=== PATIENT | male | born 1955 | race Caucasian/White ===

== ENCOUNTER → 2016-03-20 | Outpatient (CLI) | payer BC ==
[2016-03-20 19:37] LABS: ALBUMIN 3.7 GM/DL (3.2-5.2); ALBUMIN/GLOBULIN RATIO 1.12 (1.00-1.93); ALKALINE PHOSPHATASE 52 U/L (45-117); ALT/SGPT 41 U/L (12-78); ANION GAP 10 MEQ/L (8-16); AST/SGOT 24 U/L (15-37); BILIRUBIN,TOTAL 0.6 MG/DL (0.2-1.0); BLOOD UREA NITROGEN 14 MG/DL (7-18); CALCIUM LEVEL 8.6 MG/DL (8.8-10.2); CARBON DIOXIDE LEVEL 31 MEQ/L (21-32); CHLORIDE LEVEL 99 MEQ/L (98-107); CHOLESTEROL LEVEL 143 MG/DL (<200); CREATININE FOR GFR 0.76 MG/DL (0.70-1.30); GLOMERULAR FILTRATION RATE > 60.0 (>49); GLUCOSE, FASTING 119 MG/DL (80-110); POTASSIUM SERUM 4.2 MEQ/L (3.5-5.1); SODIUM LEVEL 140 MEQ/L (136-145); TRIGLYCERIDES LEVEL 144 MG/DL (<150)
[2016-03-20 19:38] LABS: BASO % 0.5 % (0.0-1.0); EOS # 0.3 K/mm3 (0.0-0.50); EOS % 3.7 % (0.0-3.0); LARGE UNSTAINED CELL # 0.2 K/mm3 (0.0-0.4); LARGE UNSTAINED CELL % 2.9 % (0.0-4.0); LYMPH # 1.6 K/mm3 (1.5-4.5); LYMPH % 19.6 % (24.0-44.0); MEAN CORPUSCULAR HEMOGLOBIN 30.9 pg (27.0-33.0); MEAN CORPUSCULAR HGB CONC 32.8 g/dl (32.0-36.5); MONO # 0.5 K/mm3 (0.0-0.8); MONO % 6.8 % (0.0-5.0); NEUTROPHILS # 4.9 K/mm3 (1.8-7.7); NEUTROPHILS % 66.6 % (36.0-66.0); PLATELET COUNT, AUTOMATED 194 k/mm3 (150-450); WHITE BLOOD COUNT 7.4 K/mm3 (4.0-10.0)
== END ==
LOC: M WUC 08:04
PROVIDERS: ATTEND Family Medicine
DX: E11.65 Type 2 diabetes mellitus with hyperglycemia (principal)

== ENCOUNTER → 2016-11-13 | Outpatient (CLI) | payer BC ==
[2016-11-13 12:10] LABS: BASO % 0.1 % (0.0-1.0); EOS # 0.2 K/mm3 (0.0-0.50); EOS % 3.7 % (0.0-3.0); LARGE UNSTAINED CELL # 0.1 K/mm3 (0.0-0.4); LARGE UNSTAINED CELL % 2.3 % (0.0-4.0); LYMPH # 1.1 K/mm3 (1.5-4.5); MEAN CORPUSCULAR HEMOGLOBIN 30.1 pg (27.0-33.0); MONO # 0.3 K/mm3 (0.0-0.8); MONO % 5.1 % (0.0-5.0); NEUTROPHILS # 4.3 K/mm3 (1.8-7.7); NEUTROPHILS % 70.7 % (36.0-66.0); PLATELET COUNT, AUTOMATED 194 k/mm3 (150-450); RED CELL DISTRIBUTION WIDTH 12.1 % (11.5-14.5); WHITE BLOOD COUNT 6.1 K/mm3 (4.0-10.0)
[2016-11-13 12:16] LABS: ALBUMIN 3.6 GM/DL (3.2-5.2); ALBUMIN/GLOBULIN RATIO 1.09 (1.00-1.93); ALKALINE PHOSPHATASE 52 U/L (45-117); ALT/SGPT 49 U/L (12-78); ANION GAP 8 MEQ/L (8-16); AST/SGOT 26 U/L (15-37); BILIRUBIN,TOTAL 0.7 MG/DL (0.2-1.0); BLOOD UREA NITROGEN 13 MG/DL (7-18); CALCIUM LEVEL 8.1 MG/DL (8.8-10.2); CARBON DIOXIDE LEVEL 30 MEQ/L (21-32); CHLORIDE LEVEL 102 MEQ/L (98-107); CHOLESTEROL LEVEL 137 MG/DL (<200); CREATININE FOR GFR 0.67 MG/DL (0.70-1.30); GLOMERULAR FILTRATION RATE > 60.0 (>49); GLUCOSE, FASTING 152 MG/DL (80-110); POTASSIUM SERUM 4.5 MEQ/L (3.5-5.1); SODIUM LEVEL 140 MEQ/L (136-145); TOTAL PROTEIN 6.9 GM/DL (6.4-8.2); TRIGLYCERIDES LEVEL 162 MG/DL (<150)
== END ==
LOC: M WUC 09:46
PROVIDERS: ATTEND Family Medicine
DX: E11.65 Type 2 diabetes mellitus with hyperglycemia (principal)

== ENCOUNTER → 2017-02-21 | Outpatient (CLI) | payer BC ==
[2017-02-21 17:44] LABS: ANION GAP 9 MEQ/L (8-16); BLOOD UREA NITROGEN 11 MG/DL (7-18); CALCIUM LEVEL 9.3 MG/DL (8.8-10.2); CARBON DIOXIDE LEVEL 31 MEQ/L (21-32); CHLORIDE LEVEL 95 MEQ/L (98-107); CREATININE FOR GFR 0.78 MG/DL (0.70-1.30); GLOMERULAR FILTRATION RATE > 60.0 (>49); GLUCOSE, FASTING 206 MG/DL (80-110); POTASSIUM SERUM 4.1 MEQ/L (3.5-5.1); SODIUM LEVEL 135 MEQ/L (136-145)
== END ==
LOC: M WUC 14:25
PROVIDERS: ATTEND Physician Assistant Medical
DX: E11.65 Type 2 diabetes mellitus with hyperglycemia (principal)

== ENCOUNTER → 2017-02-21 | Outpatient (CLI) | payer BC ==
[2017-02-21 14:05] LABS: BASO % 0.2 % (0.0-1.0); EOS # 0.2 10^3/uL (0.0-0.50); EOS % 2.3 % (0.0-3.0); IMMATURE GRANULOCYTE % 0.3 % (0-0); LYMPH # 1.8 10^3/uL (1.5-4.5); LYMPH % 19.9 % (24.0-44.0); MEAN CORPUSCULAR HEMOGLOBIN 30.2 pg (27.0-33.0); MEAN CORPUSCULAR HGB CONC 32.6 g/dl (32.0-36.5); MEAN CORPUSCULAR VOLUME 92.6 fl (80.0-96.0); MONO # 0.7 10^3/uL (0.0-0.8); MONO % 7.5 % (0.0-5.0); NEUTROPHILS # 6.4 10^3/uL (1.8-7.7); NEUTROPHILS % 69.8 % (36.0-66.0); PLATELET COUNT, AUTOMATED 270 10^3/uL (150-450); WHITE BLOOD COUNT 9.2 10^3/uL (4.0-10.0)
[2017-02-21 15:09] LABS: ALBUMIN 3.8 GM/DL (3.2-5.2); ALBUMIN/GLOBULIN RATIO 0.97 (1.00-1.93); ALKALINE PHOSPHATASE 56 U/L (45-117); ALT/SGPT 39 U/L (12-78); ANION GAP 10 MEQ/L (8-16); AST/SGOT 18 U/L (7-37); BILIRUBIN,TOTAL 0.6 MG/DL (0.2-1.0); BLOOD UREA NITROGEN 11 MG/DL (7-18); CALCIUM LEVEL 9.2 MG/DL (8.8-10.2); CARBON DIOXIDE LEVEL 30 MEQ/L (21-32); CHLORIDE LEVEL 95 MEQ/L (98-107); CREATININE FOR GFR 0.84 MG/DL (0.70-1.30); GLOMERULAR FILTRATION RATE > 60.0 (>49); GLUCOSE, FASTING 231 MG/DL (80-110); SODIUM LEVEL 135 MEQ/L (136-145); TOTAL PROTEIN 7.7 GM/DL (6.4-8.2)
--- NOTE | 2017-02-22 01:00 | REP ---
Clinical: Epigastric and abdominal pain. Technique: Upright view of the chest with supine and upright views of the abdomen and pelvis. Findings: Frontal upright view of the chest demonstrates no acute cardiopulmonary process or free air below the diaphragm to suspect pneumoperitoneum. Supine and upright views of the abdomen and pelvis demonstrate nonspecific bowel gas pattern without obstruction or perforation. No organomegaly. Calcifications in the pelvis likely phleboliths and prostatic calcifications. Skeletal structures normal for age. Impression: Nonspecific bowel gas pattern. Signed by Sajan Moran MD 02/21/2017 09:51 P
== END ==
LOC: M WUC 08:36
PROVIDERS: ATTEND Physician Assistant
DX: R10.84 Generalized abdominal pain (principal); R11.10 Vomiting, unspecified

== ENCOUNTER → 2017-02-21 | Outpatient (CLI) | payer BC ==
[~2017-02-21] MED LIST: GASTROGRAFIN SOLUTION 30ML (Q9963) As Ordered ONE; ISOVUE-370 76% 100ML VIAL (Q9967) As Ordered ONE
--- NOTE | 2017-02-21 12:19 | REP ---
CT abdomen and pelvis with IV and oral contrast: History: Generalized abdominal pain. The patient gives a history of prior appendectomy. CT contrast dose: 100 ml of intravenous Isovue 370 is administered. No comparison study. 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 The lung bases are clear. No pleural effusion or upper abdominal ascites. There is diffuse fatty infiltration of the liver noted. No focal liver lesion is seen. No adrenal lesion is observed. The spleen is homogeneous and normal in size. Pancreas is normal. No gallbladder abnormality is observed. Normal caliber aorta is seen. No retroperitoneal mass or adenopathy is seen. The kidneys enhance symmetrically and are morphologically intact. Large and small bowel loops show left colonic diverticulosis without CT evidence of diverticulitis. There is a left inguinal hernia transmitting a loop of unobstructed sigmoid colon along with some abdominal fat into the hernia sac. No pelvic mass or adenopathy is seen. There are dystrophic calcifications in the prostate gland. Urinary bladder is intact. Seminal vesicles are unremarkable. No other abdominal wall defect is seen. Bone window settings show no bony destructive lesion. Degenerative spondylosis changes are seen in the lumbar spine. Impression: 1. Left colonic diverticulosis. 2. Left inguinal hernia transmitting sigmoid colon loop without evidence of obstruction. 3. Dystrophic calcifications in the prostate. 4. Fatty infiltration of the liver diffusely. Signed by Dre Brambila MD 02/21/2017 04:11 P
== END ==
LOC: M RAD 10:19
PROVIDERS: ATTEND Physician Assistant
DX: K57.30 Diverticulosis of large intestine without perforation or abscess without bleeding (principal); K40.90 Unilateral inguinal hernia, without obstruction or gangrene, not specified as recurrent; K76.0 Fatty (change of) liver, not elsewhere classified; N42.89 Other specified disorders of prostate
CPT/HCPCS: 74177; Q9963; Q9967

== ENCOUNTER → 2017-05-28 | Outpatient (CLI) | payer BC ==
[2017-05-28 13:22] LABS: ANION GAP 5 MEQ/L (8-16); BLOOD UREA NITROGEN 14 MG/DL (7-18); CALCIUM LEVEL 8.7 MG/DL (8.8-10.2); CARBON DIOXIDE LEVEL 33 MEQ/L (21-32); CHLORIDE LEVEL 103 MEQ/L (98-107); CREATININE FOR GFR 0.78 MG/DL (0.70-1.30); GLOMERULAR FILTRATION RATE > 60.0 (>49); GLUCOSE, FASTING 145 MG/DL (70-100); POTASSIUM SERUM 4.5 MEQ/L (3.5-5.1); SODIUM LEVEL 141 MEQ/L (136-145)
[2017-05-28 13:34] LABS: ESTIMATED AVERAGE GLUCOSE 148 MG/DL (60-110); HEMOGLOBIN A1c 6.8 %
[2017-05-28 13:44] LABS: MALB URINE SIEMENS 12.2 MG/L; MAU/CREAT RATIO 6.1 MCG/MG (0.0-30.0)
== END ==
LOC: M WUC 08:24
DX: E11.69 Type 2 diabetes mellitus with other specified complication (principal)
CPT/HCPCS: 83036

== ENCOUNTER → 2017-09-23 | Outpatient (CLI) | payer BC | LOC: M RAD 09:18 | DX: K40.90 Unilateral inguinal hernia, without obstruction or gangrene, not specified as recurrent (principal); N50.812 Left testicular pain | CPT/HCPCS: 76870 ==

== ENCOUNTER → 2018-01-07 | Outpatient (CLI) | payer BC ==
[2018-01-07 13:37] LABS: ALBUMIN 3.7 GM/DL (3.2-5.2); ALBUMIN/GLOBULIN RATIO 1.19 (1.00-1.93); ALKALINE PHOSPHATASE 53 U/L (45-117); ALT/SGPT 36 U/L (12-78); ANION GAP 6 MEQ/L (8-16); AST/SGOT 24 U/L (7-37); BILIRUBIN,TOTAL 0.7 MG/DL (0.2-1.0); BLOOD UREA NITROGEN 12 MG/DL (7-18); CALCIUM LEVEL 8.9 MG/DL (8.8-10.2); CARBON DIOXIDE LEVEL 32 MEQ/L (21-32); CHLORIDE LEVEL 102 MEQ/L (98-107); CHOLESTEROL LEVEL 193 MG/DL (<200); CREATININE FOR GFR 0.72 MG/DL (0.70-1.30); GLOMERULAR FILTRATION RATE > 60.0 (>49); GLUCOSE, FASTING 125 MG/DL (70-100); HDL CHOLESTEROL 48 MG/DL (>40); LDL CHOLESTEROL 110 MG/DL (<100); NON-HDL-C 145 MG/DL; POTASSIUM SERUM 4.4 MEQ/L (3.5-5.1); SODIUM LEVEL 140 MEQ/L (136-145); TOTAL PROTEIN 6.8 GM/DL (6.4-8.2); TRIGLYCERIDES LEVEL 177 MG/DL (<150)
[2018-01-07 14:10] LABS: ESTIMATED AVERAGE GLUCOSE 140 MG/DL (60-110); HEMOGLOBIN A1c 6.5 %
[2018-01-07 16:56] LABS: BASO % 0.3 % (0.0-1.0); EOS # 0.2 10^3/uL (0.0-0.50); EOS % 3.4 % (0.0-3.0); HEMATOCRIT 47.2 % (42.0-52.0); HEMOGLOBIN 15.1 g/dl (13.5-17.5); IMMATURE GRANULOCYTE % 0.3 % (0-3.0); LYMPH # 1.4 10^3/uL (1.5-4.5); LYMPH % 20.3 % (24.0-44.0); MEAN CORPUSCULAR HEMOGLOBIN 31.2 pg (27.0-33.0); MEAN CORPUSCULAR VOLUME 97.5 fl (80.0-96.0); MONO # 0.6 10^3/uL (0.0-0.8); MONO % 9.3 % (0.0-5.0); NEUTROPHILS # 4.5 10^3/uL (1.8-7.7); NEUTROPHILS % 66.4 % (36.0-66.0); PLATELET COUNT, AUTOMATED 201 10^3/uL (150-450); RED BLOOD COUNT 4.84 10^6/uL (4.30-6.10); RED CELL DISTRIBUTION WIDTH 12.6 % (11.5-14.5); WHITE BLOOD COUNT 6.8 10^3/uL (4.0-10.0)
== END ==
LOC: M WUC 08:44
DX: E11.69 Type 2 diabetes mellitus with other specified complication (principal)
CPT/HCPCS: 80053

== ENCOUNTER → 2018-07-15 | Outpatient (CLI) | payer BC ==
[2018-07-15 18:41] LABS: BLOOD UREA NITROGEN 13 MG/DL (7-18); CALCIUM LEVEL 8.9 MG/DL (8.8-10.2); CARBON DIOXIDE LEVEL 31 MEQ/L (21-32); CHLORIDE LEVEL 102 MEQ/L (98-107); CREATININE FOR GFR 0.75 MG/DL (0.70-1.30); GLOMERULAR FILTRATION RATE > 60.0 (>49); GLUCOSE, FASTING 121 MG/DL (70-100); POTASSIUM SERUM 4.4 MEQ/L (3.5-5.1); SODIUM LEVEL 139 MEQ/L (136-145)
== END ==
LOC: M WUC 08:03
PROVIDERS: ATTEND Physician Assistant
DX: E11.65 Type 2 diabetes mellitus with hyperglycemia (principal); E11.69 Type 2 diabetes mellitus with other specified complication

== ENCOUNTER → 2019-01-20 | Outpatient (CLI) | payer BC ==
[2019-01-20 13:21] LABS: BASO % 0.3 % (0.0-1.0); EOS # 0.2 10^3/uL (0.0-0.5); EOS % 3.5 % (0.0-3.0); HEMATOCRIT 46.7 % (42.0-52.0); HEMOGLOBIN 14.6 g/dl (13.5-17.5); LYMPH # 1.2 10^3/uL (1.5-5.0); LYMPH % 19.3 % (24.0-44.0); MEAN CORPUSCULAR HEMOGLOBIN 30.6 pg (27.0-33.0); MEAN CORPUSCULAR HGB CONC 31.3 g/dl (32.0-36.5); MEAN CORPUSCULAR VOLUME 97.9 fl (80.0-96.0); MONO # 0.5 10^3/uL (0.0-0.8); NEUTROPHILS # 4.1 10^3/uL (1.5-8.5); NEUTROPHILS % 68.6 % (36.0-66.0); PLATELET COUNT, AUTOMATED 203 10^3/uL (150-450); RED BLOOD COUNT 4.77 10^6/uL (4.30-6.10)
[2019-01-20 13:30] LABS: ALBUMIN 3.6 GM/DL (3.2-5.2); ALT/SGPT 40 U/L (12-78); BILIRUBIN,TOTAL 0.5 MG/DL (0.2-1.0); BLOOD UREA NITROGEN 12 MG/DL (7-18); CALCIUM LEVEL 8.5 MG/DL (8.8-10.2); CARBON DIOXIDE LEVEL 32 MEQ/L (21-32); CHLORIDE LEVEL 100 MEQ/L (98-107); CHOLESTEROL LEVEL 147 MG/DL (<200); CHOLESTEROL RISK RATIO 2.882 (<5); CREATININE FOR GFR 0.77 MG/DL (0.70-1.30); GLOMERULAR FILTRATION RATE > 60.0 (>49); GLUCOSE, FASTING 124 MG/DL (70-100); HDL CHOLESTEROL 51 MG/DL (>40); LDL CHOLESTEROL 70 MG/DL (<100); NON-HDL-C 96 MG/DL; POTASSIUM SERUM 4.3 MEQ/L (3.5-5.1); SODIUM LEVEL 139 MEQ/L (136-145); TOTAL PROTEIN 7.3 GM/DL (6.4-8.2); TRIGLYCERIDES LEVEL 129 MG/DL (<150)
[2019-01-20 13:39] LABS: HEMOGLOBIN A1c 7.1 %
[2019-01-20 13:53] LABS: MALB URINE SIEMENS 7.9 MG/L; MAU/CREAT RATIO 6.9 MCG/MG (0.0-30.0)
== END ==
LOC: M WUC 07:58
PROVIDERS: ATTEND Family Medicine
DX: E11.69 Type 2 diabetes mellitus with other specified complication (principal)

== ENCOUNTER → 2019-07-27 | Outpatient (CLI) | payer BC ==
[2019-07-27 10:43] LABS: HEMOGLOBIN A1c 7.9 %
== END ==
LOC: M WUC 08:12
PROVIDERS: ATTEND Nurse Practitioner Family
DX: E11.69 Type 2 diabetes mellitus with other specified complication (principal)

== ENCOUNTER → 2019-12-04 | Outpatient (CLI) | payer OTHER ==
[2019-12-04 18:59] LABS: HEMOGLOBIN A1c 8.2 %
[2019-12-04 19:02] LABS: ALBUMIN 3.8 GM/DL (3.2-5.2); ALT/SGPT 48 U/L (12-78); BILIRUBIN,TOTAL 0.6 MG/DL (0.2-1.0); BLOOD UREA NITROGEN 18 MG/DL (7-18); CALCIUM LEVEL 9.1 MG/DL (8.8-10.2); CARBON DIOXIDE LEVEL 30 MEQ/L (21-32); CHLORIDE LEVEL 102 MEQ/L (98-107); CHOLESTEROL LEVEL 262 MG/DL (<200); CHOLESTEROL RISK RATIO 5.458 (<5); CREATININE FOR GFR 0.76 MG/DL (0.70-1.30); GLOMERULAR FILTRATION RATE > 60.0 (>49); GLUCOSE, FASTING 121 MG/DL (70-100); HDL CHOLESTEROL 48 MG/DL (>40); LDL CHOLESTEROL 155 MG/DL (<100); NON-HDL-C 214 MG/DL; POTASSIUM SERUM 4.1 MEQ/L (3.5-5.1); SODIUM LEVEL 136 MEQ/L (136-145); TOTAL PROTEIN 7.5 GM/DL (6.4-8.2); TRIGLYCERIDES LEVEL 296 MG/DL (<150)
== END ==
LOC: M WUC 14:06
PROVIDERS: ATTEND Nurse Practitioner Family
DX: E78.2 Mixed hyperlipidemia (principal); E11.9 Type 2 diabetes mellitus without complications

== ENCOUNTER → 2020-03-06 | Outpatient (CLI) | payer OTHER ==
[2020-03-06 11:35] LABS: HEMOGLOBIN A1c 9.6 %
[2020-03-06 11:55] LABS: CHOLESTEROL RISK RATIO 3.911 (<5)
[2020-03-06 12:08] LABS: MALB URINE SIEMENS 31.4 MG/L; MAU/CREAT RATIO 16.4 MCG/MG (0.0-30.0)
== END ==
LOC: M WUC 08:13
PROVIDERS: ATTEND Nurse Practitioner Family
DX: E11.69 Type 2 diabetes mellitus with other specified complication (principal)

== ENCOUNTER → 2020-06-09 | Outpatient (CLI) | payer MEDICARE ==
--- NOTE | 2020-06-09 08:12 | REP ---
INDICATION: AAA SCREENING. COMPARISON: None. None. TECHNIQUE: Multiple sonographic images of the abdominal aorta. Multiple duplex ultrasound images of the abdominal aorta. FINDINGS: Abdominal aortic measurements: Proximal, at diaphragm: 2.6 cm AP x 2.9 cm transverse Renal artery level: Obscured cm AP x obscured cm transverse Mid aorta: 2.0 cm AP x 1.9 cm transverse Distal aorta, pre bifurcation: 1.7 cm AP x 2.3 cm transverse Right common iliac artery: Obscured cm AP x obscured cm transverse Left common iliac artery: 1.2 cm AP x 1.4 cm transverse IMPRESSION: No abdominal aortic aneurysm is identified by ultrasound today, however, the renal artery level of the aorta is obscured, and the right common iliac artery is obscured. <Electronically signed by Shade Barrera > 06/09/20 [id number]
== END ==
LOC: M RAD 07:24
PROVIDERS: ATTEND Nurse Practitioner Family
DX: Z87.891 Personal history of nicotine dependence (principal)

== ENCOUNTER → 2020-08-29 | Outpatient (REF) | payer MEDICARE ==
[2020-08-29 11:04] LABS: HEMOGLOBIN A1c 8.3 %
== END ==
LOC: M WUC 09:48
PROVIDERS: ATTEND Nurse Practitioner Family
DX: E11.69 Type 2 diabetes mellitus with other specified complication (principal)

== ENCOUNTER → 2020-12-04 | Outpatient (CLI) | payer MEDICARE ==
[2020-12-04 11:47] LABS: HEMOGLOBIN A1c 8.2 %
== END ==
LOC: M WUC 09:51
PROVIDERS: ATTEND Nurse Practitioner Family
DX: E11.69 Type 2 diabetes mellitus with other specified complication (principal)

== ENCOUNTER → 2021-03-06 | Outpatient (CLI) | payer MEDICARE ==
[2021-03-06 10:24] LABS: ALBUMIN 3.6 GM/DL (3.2-5.2); ALT/SGPT 43 U/L (12-78); BILIRUBIN,TOTAL 0.5 MG/DL (0.2-1.0); BLOOD UREA NITROGEN 16 MG/DL (7-18); CARBON DIOXIDE LEVEL 29 MEQ/L (21-32); CHLORIDE LEVEL 105 MEQ/L (98-107); CHOLESTEROL LEVEL 205 MG/DL (<200); CHOLESTEROL RISK RATIO 4.555 (<5); CREATININE FOR GFR 0.77 MG/DL (0.70-1.30); GLOMERULAR FILTRATION RATE > 60.0 (>49); GLUCOSE, FASTING 221 MG/DL (70-100); HDL CHOLESTEROL 45 MG/DL (>40); LDL CHOLESTEROL 114 MG/DL (<100); NON-HDL-C 160 MG/DL; POTASSIUM SERUM 4.8 MEQ/L (3.5-5.1); SODIUM LEVEL 140 MEQ/L (136-145); TOTAL PROTEIN 7.2 GM/DL (6.4-8.2); TRIGLYCERIDES LEVEL 230 MG/DL (<150)
[2021-03-06 10:29] LABS: HEMOGLOBIN A1c 8.6 %
[2021-03-06 10:48] LABS: MALB URINE SIEMENS 10.9 MG/L; MAU/CREAT RATIO 8.7 MCG/MG (0.0-30.0)
== END ==
LOC: M LAB 08:58
PROVIDERS: ATTEND Nurse Practitioner Family
DX: E11.69 Type 2 diabetes mellitus with other specified complication (principal); E78.2 Mixed hyperlipidemia

== ENCOUNTER → 2021-06-05 | Outpatient (REF) | payer MEDICARE ==
[2021-06-05 11:27] LABS: HEMOGLOBIN A1c 7.4 %
== END ==
LOC: M WUC 10:02
PROVIDERS: ATTEND Nurse Practitioner Family
DX: E11.69 Type 2 diabetes mellitus with other specified complication (principal)

== ENCOUNTER → 2021-09-12 | Outpatient (CLI) | payer MEDICARE ==
[2021-09-12 10:00] LABS: BLOOD UREA NITROGEN 13 MG/DL (7-18); CALCIUM LEVEL 9.2 MG/DL (8.8-10.2); CARBON DIOXIDE LEVEL 28 MEQ/L (21-32); CHLORIDE LEVEL 103 MEQ/L (98-107); CREATININE FOR GFR 0.79 MG/DL (0.70-1.30); GLOMERULAR FILTRATION RATE > 60.0 (>49); GLUCOSE, FASTING 189 MG/DL (70-100); POTASSIUM SERUM 4.9 MEQ/L (3.5-5.1); SODIUM LEVEL 137 MEQ/L (136-145)
[2021-09-12 10:01] LABS: HEMOGLOBIN A1c 7.1 %
== END ==
LOC: M PLALAB 08:31 → M LAB 08:31
PROVIDERS: ATTEND Nurse Practitioner Family
DX: E11.69 Type 2 diabetes mellitus with other specified complication (principal)

== ENCOUNTER → 2021-12-15 | Outpatient (CLI) | payer MEDICARE ==
[2021-12-15 11:23] LABS: ALBUMIN 3.6 GM/DL (3.2-5.2); ALT/SGPT 40 U/L (12-78); BILIRUBIN,TOTAL 0.5 MG/DL (0.2-1.0); BLOOD UREA NITROGEN 14 MG/DL (7-18); CARBON DIOXIDE LEVEL 29 MEQ/L (21-32); CHLORIDE LEVEL 101 MEQ/L (98-107); CHOLESTEROL LEVEL 176 MG/DL (<200); CHOLESTEROL RISK RATIO 3.591 (<5); CREATININE FOR GFR 0.92 MG/DL (0.70-1.30); GLOMERULAR FILTRATION RATE > 60.0 (>49); GLUCOSE, FASTING 232 MG/DL (70-100); HDL CHOLESTEROL 49 MG/DL (>40); LDL CHOLESTEROL 75 MG/DL (<100); NON-HDL-C 127 MG/DL; POTASSIUM SERUM 4.2 MEQ/L (3.5-5.1); SODIUM LEVEL 135 MEQ/L (136-145); TRIGLYCERIDES LEVEL 261 MG/DL (<150)
[2021-12-15 11:29] LABS: HEMOGLOBIN A1c 8.1 %
[2021-12-15 12:05] LABS: MALB URINE SIEMENS 12.3 MG/L; MAU/CREAT RATIO 8.7 MCG/MG (0.0-30.0)
== END ==
LOC: M WUC 08:06
PROVIDERS: ATTEND Nurse Practitioner Family
DX: E11.69 Type 2 diabetes mellitus with other specified complication (principal); E78.2 Mixed hyperlipidemia

== ENCOUNTER → 2022-03-25 | Outpatient (CLI) | payer MEDICARE ==
[2022-03-25 10:17] LABS: HEMOGLOBIN A1c 8.2 % (4.0-6.0)
== END ==
LOC: M WUC 08:27
PROVIDERS: ATTEND Nurse Practitioner Family
DX: E11.69 Type 2 diabetes mellitus with other specified complication (principal)

== ENCOUNTER → 2022-04-13 | Outpatient (CLI) | payer MEDICARE ==
[2022-04-13 16:58] LABS: HEMATOCRIT 41.6 % (42.0-52.0); HEMOGLOBIN 13.2 g/dl (13.5-17.5); MEAN CORPUSCULAR HEMOGLOBIN 30.9 pg (27.0-33.0); MEAN CORPUSCULAR HGB CONC 31.7 g/dl (32.0-36.5); MEAN CORPUSCULAR VOLUME 97.4 fl (80.0-96.0); PLATELET COUNT, AUTOMATED 222 10^3/uL (150-450); RED BLOOD COUNT 4.27 10^6/uL (4.30-6.10); WHITE BLOOD COUNT 7.2 10^3/uL (4.0-10.0)
== END ==
LOC: M WUC 13:24
PROVIDERS: ATTEND Internal Medicine Cardiovascular Disease
DX: R06.02 Shortness of breath (principal)

== ENCOUNTER → 2022-04-14 | Outpatient (CLI) | payer MEDICARE | LOC: M RAD 09:02 | PROVIDERS: ATTEND Internal Medicine Cardiovascular Disease | DX: R06.02 Shortness of breath (principal); I51.7 Cardiomegaly; I77.819 Aortic ectasia, unspecified site ==

== ENCOUNTER → 2022-05-10 | Outpatient (CLI) | payer MEDICARE | LOC: M CARPUL 09:50 | PROVIDERS: ATTEND Internal Medicine Cardiovascular Disease | DX: R06.02 Shortness of breath (principal) ==

== ENCOUNTER → 2022-06-18 | Outpatient (CLI) | payer MEDICARE ==
[2022-06-18 13:34] LABS: ALBUMIN 3.5 G/DL (3.2-5.2); ALKALINE PHOSPHATASE 49 U/L (46-116); ALT/SGPT 29 U/L (7.0-40); AST/SGOT 22 U/L (<34); BILIRUBIN,TOTAL 0.4 MG/DL (0.3-1.2); BLOOD UREA NITROGEN 15 MG/DL (9-23); CARBON DIOXIDE LEVEL 28 MMOL/L (20-31); CHLORIDE LEVEL 98 MMOL/L (98-107); CHOLESTEROL LEVEL 156 MG/DL (<200); CHOLESTEROL RISK RATIO 2.95 (<5); GLOMERULAR FILTRATION RATE > 60.0 (>49); GLUCOSE, FASTING 356 MG/DL (74-106); HDL CHOLESTEROL 52.8 MG/DL (>40); LDL CHOLESTEROL 56.2 MG/DL (<100); NON-HDL-C 103.2 MG/DL; POTASSIUM SERUM 4.6 MMOL/L (3.5-5.1); SODIUM LEVEL 135 MMOL/L (136-145); TOTAL PROTEIN 6.6 G/DL (5.7-8.2); TRIGLYCERIDES LEVEL 235 MG/DL (<150)
[2022-06-18 13:59] LABS: CREATININE, URINE 78.2 MG/DL
[2022-06-18 14:00] LABS: MALB URINE SIEMENS < 3.0 MG/L; MAU/CREAT RATIO 3.8 MCG/MG (0.0-30.0)
[2022-06-18 16:22] LABS: HEMOGLOBIN A1c 8.9 % (4.0-6.0)
== END ==
LOC: M WUC 09:10
PROVIDERS: ATTEND Nurse Practitioner Family
DX: E11.69 Type 2 diabetes mellitus with other specified complication (principal); E78.2 Mixed hyperlipidemia

== ENCOUNTER → 2022-09-29 | Outpatient (CLI) | payer MEDICARE ==
[2022-09-29 14:41] LABS: HEMOGLOBIN A1c 8.7 % (4.0-6.0)
[2022-09-29 14:53] LABS: BLOOD UREA NITROGEN 18 MG/DL (9-23); CALCIUM LEVEL 9.1 MG/DL (8.3-10.6); CARBON DIOXIDE LEVEL 24 MMOL/L (20-31); CHLORIDE LEVEL 101 MMOL/L (98-107); CREATININE FOR GFR 0.87 MG/DL (0.70-1.30); GLOMERULAR FILTRATION RATE > 60.0 (>49); GLUCOSE, FASTING 222 MG/DL (74-106); POTASSIUM SERUM 4.5 MMOL/L (3.5-5.1); SODIUM LEVEL 134 MMOL/L (136-145)
== END ==
LOC: M WUC 08:14
PROVIDERS: ATTEND Nurse Practitioner Family
DX: E11.69 Type 2 diabetes mellitus with other specified complication (principal)

== ENCOUNTER → 2022-12-30 | Outpatient (CLI) | payer MEDICARE ==
[2022-12-30 10:14] LABS: BLOOD UREA NITROGEN 18 MG/DL (9-23); CALCIUM LEVEL 8.8 MG/DL (8.3-10.6); CARBON DIOXIDE LEVEL 28 MMOL/L (20-31); CHLORIDE LEVEL 100 MMOL/L (98-107); CREATININE FOR GFR 0.81 MG/DL (0.70-1.30); GLOMERULAR FILTRATION RATE > 60.0 (>49); GLUCOSE, FASTING 277 MG/DL (74-106); POTASSIUM SERUM 4.6 MMOL/L (3.5-5.1); SODIUM LEVEL 136 MMOL/L (136-145)
== END ==
LOC: M WUC 08:14
PROVIDERS: ATTEND Nurse Practitioner Family
DX: E11.69 Type 2 diabetes mellitus with other specified complication (principal)

== ENCOUNTER → 2023-04-01 | Outpatient (CLI) | payer MEDICARE ==
[2023-04-01 11:20] LABS: HEMOGLOBIN A1c 6.4 % (4.0-6.0)
== END ==
LOC: M WUC 08:06
PROVIDERS: ATTEND Nurse Practitioner Family
DX: E11.69 Type 2 diabetes mellitus with other specified complication (principal)

== ENCOUNTER → 2023-07-01 | Outpatient (CLI) | payer MEDICARE ==
[2023-07-01 10:52] LABS: ALBUMIN 3.8 G/DL (3.2-5.2); ALKALINE PHOSPHATASE 54 U/L (46-116); ALT/SGPT 37 U/L (7.0-40); AST/SGOT 29 U/L (<34); BILIRUBIN,TOTAL 0.6 MG/DL (0.3-1.2); BLOOD UREA NITROGEN 17 MG/DL (9-23); CALCIUM LEVEL 9.5 MG/DL (8.3-10.6); CARBON DIOXIDE LEVEL 30 MMOL/L (20-31); CHLORIDE LEVEL 100 MMOL/L (98-107); CHOLESTEROL LEVEL 133 MG/DL (<200); CHOLESTEROL RISK RATIO 2.87 (<5); GLOMERULAR FILTRATION RATE > 60.0 (>49); GLUCOSE, FASTING 114 MG/DL (74-106); HDL CHOLESTEROL 46.3 MG/DL (>40); LDL CHOLESTEROL 53.9 MG/DL (<100); NON-HDL-C 86.7 MG/DL; POTASSIUM SERUM 4.5 MMOL/L (3.5-5.1); SODIUM LEVEL 138 MMOL/L (136-145); TOTAL PROTEIN 7.2 G/DL (5.7-8.2); TRIGLYCERIDES LEVEL 164 MG/DL (<150)
[2023-07-01 11:00] LABS: BASO % 0.3 % (0.0-1.0); EOS # 0.3 10^3/uL (0.0-0.5); EOS % 3.9 % (0.0-3.0); HEMATOCRIT 44.1 % (42.0-52.0); HEMOGLOBIN 13.9 g/dl (13.5-17.5); LYMPH # 1.3 10^3/uL (1.5-5.0); LYMPH % 16.2 % (24.0-44.0); MEAN CORPUSCULAR HEMOGLOBIN 30.4 pg (27.0-33.0); MEAN CORPUSCULAR HGB CONC 31.5 g/dl (32.0-36.5); MEAN CORPUSCULAR VOLUME 96.5 fl (80.0-96.0); MONO # 0.7 10^3/uL (0.0-0.8); MONO % 9.2 % (2.0-8.0); NEUTROPHILS # 5.4 10^3/uL (1.5-8.5); NEUTROPHILS % 69.8 % (36.0-66.0); PLATELET COUNT, AUTOMATED 240 10^3/uL (150-450); RED BLOOD COUNT 4.57 10^6/uL (4.30-6.10); WHITE BLOOD COUNT 7.7 10^3/uL (4.0-10.0)
[2023-07-01 11:37] LABS: CREATININE, URINE 63.7 MG/DL; MALB URINE SIEMENS < 3.0 MG/L; MAU/CREAT RATIO 4.7 MCG/MG (0.0-30.0)
== END ==
LOC: M WUC 08:05
PROVIDERS: ATTEND Nurse Practitioner Family
DX: E11.69 Type 2 diabetes mellitus with other specified complication (principal); E78.2 Mixed hyperlipidemia; I10 Essential (primary) hypertension

== ENCOUNTER → 2023-10-03 | Outpatient (CLI) | payer MEDICARE ==
[2023-10-03 16:41] LABS: HEMOGLOBIN A1c 6.1 % (4.0-6.0)
== END ==
LOC: M WUC 12:55
PROVIDERS: ATTEND Nurse Practitioner Family
DX: E11.69 Type 2 diabetes mellitus with other specified complication (principal)

== ENCOUNTER → 2024-04-04 | Outpatient (CLI) | payer MEDICARE ==
[2024-04-04 11:08] LABS: HEMOGLOBIN A1c 6.6 % (4.0-6.0)
[2024-04-04 11:14] LABS: ALBUMIN 3.6 G/DL (3.2-5.2); ALKALINE PHOSPHATASE 51 U/L (40-129); ALT/SGPT 25 U/L (7.0-40); AST/SGOT 20 U/L (<34); BILIRUBIN,TOTAL 0.5 MG/DL (0.3-1.2); BLOOD UREA NITROGEN 20 MG/DL (9-23); CARBON DIOXIDE LEVEL 28 MMOL/L (20-31); CHLORIDE LEVEL 104 MMOL/L (98-107); CHOLESTEROL LEVEL 148 MG/DL (<200); CHOLESTEROL RISK RATIO 2.87 (<5); CREATININE FOR GFR 0.94 MG/DL (0.70-1.30); GLOMERULAR FILTRATION RATE > 60.0 (>49); GLUCOSE, FASTING 159 MG/DL (74-106); HDL CHOLESTEROL 51.4 MG/DL (>40); LDL CHOLESTEROL 69.4 MG/DL (<100); NON-HDL-C 96.6 MG/DL; POTASSIUM SERUM 5.1 MMOL/L (3.5-5.1); SODIUM LEVEL 142 MMOL/L (136-145); TOTAL PROTEIN 6.9 G/DL (5.7-8.2); TRIGLYCERIDES LEVEL 136 MG/DL (<150)
[2024-04-04 11:26] LABS: CREATININE, URINE 302.1 MG/DL; MAU/CREAT RATIO 12.9 MCG/MG (0.0-30.0)
== END ==
LOC: M WUC 08:13
PROVIDERS: ATTEND Nurse Practitioner Family
DX: E78.2 Mixed hyperlipidemia (principal); I10 Essential (primary) hypertension; E11.69 Type 2 diabetes mellitus with other specified complication

== ENCOUNTER → 2024-10-02 | Outpatient (CLI) | payer MEDICARE ==
[2024-10-02 12:54] LABS: ESTIMATED AVERAGE GLUCOSE 148.0 MG/DL (60-110)
== END ==
LOC: M WUC 08:03
PROVIDERS: ATTEND Nurse Practitioner Family
DX: E11.69 Type 2 diabetes mellitus with other specified complication (principal)